=== PATIENT | male | born 1950 | race African-American/Black ===

== ENCOUNTER 2025-10-04 21:38 | Emergency (ER) | payer OTHER ==
[~2025-10-04] VITALS: Ht 170.2 cm; Wt 61.2 kg
[2025-10-04] MEDS ORDERED: AZITHROMYCIN 250 MG TABLET ONE (22:57)
[2025-10-04] MEDS ORDERED: dexaMETHasone SOD PHOSPHATE 1 ML ONE (22:57)
[2025-10-04] MEDS: ALBUTEROL FS 2.5 MG/3 ML VIAL.NEB NEB ONE (23:01)
[2025-10-04] MEDS: IPRATROPIUM NEB FS 0.5 MG/2.5 ML AMPUL.NEB NEB ONE (23:01)
[2025-10-04] MEDS: AZITHROMYCIN 250 MG TABLET PO ONE (23:03)
[2025-10-04 23:04] LABS: PLATELET COUNT (AUTO) 158 K/uL (150-450); RED BLOOD CELL COUNT(AUTO) 5.51 MIL/uL (4.5-6.0); RED CELL DISTRIBUTION WIDTH 15.4 % (11.5-15.0); WHITE BLOOD COUNT (AUTO) 8.8 K/uL (4.3-11.0)
[2025-10-04] MEDS: dexaMETHasone SOD PHOSPHATE 10 MG/ML VIAL IV ONE (23:04)
[2025-10-04 23:10] VITALS: O2SAT 94
[2025-10-04 23:10] LABS: CALCIUM, SERUM 8.9 mg/dL (8.5-10.1); CREATININE 1.0 mg/dL (0.6-1.3); SODIUM SERUM 137.0 mmol/L (136-145); UREA NITROGEN, BLOOD 18.0 mg/dL (7-18)
[2025-10-04] MEDS ORDERED: ALBUTEROL FS 2.5 MG/3 ML VIAL.NEB ONE (23:20)
[2025-10-04] MEDS ORDERED: IPRATROPIUM NEB FS 0.5 MG/2.5 ML AMPUL.NEB ONE (23:20)
[2025-10-04 23:23] LABS: ASPARTATE AMINOTRANSFERASE 25.0 U/L (15-37); NT-PRO BNP 95.0 pg/mL (0-125); TOTAL PROTEIN, SERUM 7.8 g/dL (6.4-8.2)
[2025-10-04 23:25] VITALS: O2SAT 95; O2SAT 99
[2025-10-04 23:46] LABS: LYMPHOCYTES % (MANUAL) 8 % (16-48); NEUTROPHILS % (MANUAL) 43 (42-76)
[2025-10-04 23:47] LABS: EOSINOPHILS % (MANUAL) 44 % (0-4); MONOCYTES % (MANUAL) 5 % (0-11.0); PLATELET ESTIMATE ADEQUATE
[2025-10-05] MEDS ORDERED: PRED20TA PO (01:03)
[2025-10-05] MEDS ORDERED: PERM60CR4 TP (01:03)
[2025-10-05 02:22] VITALS: BP 140/89; TEMP 98; O2SAT 99
== END 2025-10-05 02:51 | disposition home or self-care (01) ==
LOC: ER 21:50
DX: L29.9 Pruritus, unspecified (principal); J44.1 Chronic obstructive pulmonary disease with (acute) exacerbation; I11.9 Hypertensive heart disease without heart failure; Z88.0 Allergy status to penicillin
CPT/HCPCS: 99285; 96374; 71045; 93005; 85027; 85007; 36415; 80053; 83880; 94640; 94799; J1100; Q0163